=== PATIENT | female | born 1955 | race Caucasian/White ===

== ENCOUNTER 2019-06-07 08:56 | Inpatient (IN) ==
[2019-06-07 13:21] LABS: Bacteria,Urine Few /HPF (Few); Bilirubin,Urine Negative (Negative); Blood, Urine Moderate mg/dL (Negative); Glucose,Urine (UA) 50 mg/dL (Negative); Ketones,Urine Negative (Negative); Mucus,Urine Occasional /LPF (Occasional); Nitrite,Urine Negative (Negative); Protein,Urine 100 MG/DL; RBC,Urine 11 /HPF (0-4); Squamous Epithelial Cell,Urine Few /HPF (0-10); Urine Color Yellow (Yellow); Urine Specific Gravity 1.014 (1.001-1.035); Urine Urobilinogen < 2.0 EU/DL (0.2-1.0)
[2019-06-07 13:22] LABS: Apearance,Urine Cloudy (Clear)
[2019-06-07 13:23] LABS: Basophils % 0.4 % (0.0-0.8); Eosinophils # 0.3 10*3/uL (0.0-0.87); Eosinophils % 2.7 % (0.00-10.9); Hemoglobin 13.1 GM/DL (12.0-16.0); Immature Granulocytes % 0.4 %; Immature Granulocytes Absolute 0.04 #; Lymphocytes % 19.2 % (21.3-54.2); Mean Corpuscular Volume 96.5 FL (87-102); Mean Platelet Volume 12.3 FL (9.6-12.0); Monocytes % 5.2 % (1.7-12.7); Neutrophils % 72.1 % (38.7-73.9); Platelet Count 205 T/CUMM (130-400); Red Blood Count 4.25 MC/CUMM (3.8-5.5); Red Cell Distribution Width 13.2 % (9.3-17.3); White Blood Count 10.5 T/CUMM (4-12)
[2019-06-07 13:24] LABS: PT Patient Result 10.5 SECS (9.6-12.2); Partial Thromboplastin Time 26.5 SECS (20.8-36.0)
[2019-06-07 13:50] LABS: Albumin 3.5 G/DL (3.4-5.0); Bilirubin,Total 0.4 MG/DL (0.2-1.0); Calcium 9.4 MG/DL (8.5-10.1); Osmolality,Calculated 292.4 MOS/KG (273-304); Total Protein 8.2 G/DL (6.4-8.3)
[2019-06-07] MEDS ORDERED: ACETAMINOPHEN 325 MG TABLET PO PRN (18:06)
[2019-06-07] MEDS ORDERED: ONDANSETRON 4 MG/2 ML VIAL IV PRN (18:06)
[2019-06-07] MEDS: hydrALAZINE 20 MG/1 ML VIAL IV PRN (20:43)
[2019-06-08] MEDS ORDERED: cefTRIAXone 1,000 MG in SYRINGE 1 EACH IV ONE (07:00)
[2019-06-08] MEDS ORDERED: PROPOFOL 200 MG/20 ML VIAL IV ONE (12:13)
[2019-06-08] MEDS ORDERED: fentaNYL 100 MCG/2 ML VIAL ONE (12:14)
[2019-06-08] MEDS ORDERED: hydrALAZINE 20 MG/1 ML VIAL ONE (12:14)
[2019-06-08] MEDS ORDERED: PHENYLEPHRINE 1 MG/10 ML SYRINGE IV ONE (12:14)
[2019-06-08] MEDS ORDERED: MIDAZOLAM 2 MG/2 ML VIAL ONE (12:14)
[2019-06-08] MEDS ORDERED: LIDOCAINE 2% 5 ML VIAL ONE (12:14)
[2019-06-08] MEDS ORDERED: SEVOFLURANE 1 UNIT/15 MINUTE INH ONE (12:14)
[2019-06-08] MEDS ORDERED: SUCCINYLCHOLINE 200 MG/10 ML VIAL ONE (12:14)
[2019-06-08] MEDS ORDERED: ROCURONIUM 100 MG/10 ML VIAL IV ONE (12:14)
[2019-06-08] MEDS: hydrALAZINE 20 MG/1 ML VIAL IV PRN (20:20)
[2019-06-09 05:26] LABS: Basophils % 0.3 % (0.0-0.8); Eosinophils # 0.3 10*3/uL (0.0-0.87); Eosinophils % 3.4 % (0.00-10.9); Hematocrit 35.3 VOL% (35.7-47.0); Hemoglobin 11.3 GM/DL (12.0-16.0); Immature Granulocytes % 0.4 %; Immature Granulocytes Absolute 0.04 #; Lymphocytes # 2.2 10*3/uL (1.4-4.0); Lymphocytes % 21.7 % (21.3-54.2); Mean Corpuscular Volume 97.5 FL (87-102); Mean Platelet Volume 12.6 FL (9.6-12.0); Neutrophils % 66.2 % (38.7-73.9); Platelet Count 164 T/CUMM (130-400); Red Blood Count 3.62 MC/CUMM (3.8-5.5); Red Cell Distribution Width 13.4 % (9.3-17.3)
[2019-06-09 05:56] LABS: Calcium 8.4 MG/DL (8.5-10.1); Osmolality,Calculated 294.5 MOS/KG (273-304)
[2019-06-09] MEDS: hydrALAZINE 20 MG/1 ML VIAL IV PRN (21:19)
[2019-06-10] MEDS ORDERED: ceFAZolin 1,000 MG in SYRINGE 1 EACH IV ONE (06:00)
[2019-06-10 06:09] LABS: Calcium 8.6 MG/DL (8.5-10.1)
[2019-06-10 06:10] LABS: Uric Acid 8.7 MG/DL (2.6-6.0)
[2019-06-10] MEDS ORDERED: HEPARIN 5,000 UNIT/1 ML VIAL ONE (10:20)
[2019-06-10] MEDS ORDERED: LIDOCAINE 1%/EPI INJ 20 ML VIAL ONE (10:21)
[2019-06-10] MEDS ORDERED: BUPIVACAINE MPF 0.25% 30 ML VIAL ONE (10:21)
[2019-06-10] MEDS ORDERED: KETAMINE 500 MG/10 ML VIAL ONE (11:33)
[2019-06-10] MEDS ORDERED: LIDOCAINE 2% 5 ML VIAL ONE (11:33)
[2019-06-10] MEDS ORDERED: PROPOFOL 200 MG/20 ML VIAL IV ONE (11:33)
[2019-06-10] MEDS ORDERED: MIDAZOLAM 2 MG/2 ML VIAL ONE (11:34)
[2019-06-10] MEDS ORDERED: fentaNYL 100 MCG/2 ML VIAL ONE (11:34)
[2019-06-10] MEDS: NICOTINE 14 MG/24 HR PATCH TRANSDERM SCH ×2 (12:10→12:11)
[2019-06-10 13:32] LABS: Hepatitis B Core IgM Quant 0.22 Index; Hepatitis B Surface Ag Quant < 0.10 Index; Hepatitis B Surface Ag Result Negative (Negative); Hepatitis C Virus Ab Quant 0.17 Index; Hepatitis C Virus Ab Result Negative (Negative)
[2019-06-10] MEDS ORDERED: HEPARIN 10,000 UNIT/10 ML VIAL IV SCH (15:30)
[2019-06-10] MEDS: amLODIPine 10 MG TABLET PO SCH (17:53)
[2019-06-10] MEDS: hydrALAZINE 20 MG/1 ML VIAL IV PRN (17:53)
[2019-06-11 05:28] LABS: Basophils % 0.5 % (0.0-0.8); Eosinophils # 0.3 10*3/uL (0.0-0.87); Hematocrit 34.3 VOL% (35.7-47.0); Hemoglobin 10.9 GM/DL (12.0-16.0); Immature Granulocytes % 0.3 %; Immature Granulocytes Absolute 0.03 #; Mean Corpuscular HGB Conc 31.8 GM/DL (32-36); Mean Corpuscular Volume 97.2 FL (87-102); Mean Platelet Volume 12.3 FL (9.6-12.0); Monocytes % 7.3 % (1.7-12.7); Neutrophils % 64.9 % (38.7-73.9); Platelet Count 172 T/CUMM (130-400); Red Blood Count 3.53 MC/CUMM (3.8-5.5); Red Cell Distribution Width 13.4 % (9.3-17.3); White Blood Count 8.6 T/CUMM (4-12)
[2019-06-11 06:01] LABS: Calcium 8.4 MG/DL (8.5-10.1); Osmolality,Calculated 285.3 MOS/KG (273-304)
[2019-06-11] MEDS: NICOTINE 14 MG/24 HR PATCH TRANSDERM SCH (08:06)
[2019-06-11] MEDS: amLODIPine 10 MG TABLET PO SCH (08:06)
[2019-06-11 14:08] VITALS: BP 158/96
== END 2019-06-11 17:09 | disposition home or self-care (01) | DRG 686 ==
LOC: N.5E 08:59
PROVIDERS: ADMIT Internal Medicine; ATTEND Internal Medicine

== ENCOUNTER 2019-07-21 06:10 | Inpatient (IN) ==
[2019-07-14 09:51] LABS: Basophils # 0.1 10*3/uL (0.0-0.2); Basophils % 0.4 % (0.0-0.8); Eosinophils # 0.8 10*3/uL (0.0-0.87); Eosinophils % 6.9 % (0.00-10.9); Hematocrit 39.7 VOL% (35.7-47.0); Hemoglobin 12.4 GM/DL (12.0-16.0); Immature Granulocytes % 0.5 %; Immature Granulocytes Absolute 0.06 #; Lymphocytes # 2.9 10*3/uL (1.4-4.0); Lymphocytes % 25.5 % (21.3-54.2); Mean Corpuscular HGB Conc 31.2 GM/DL (32-36); Mean Corpuscular Volume 100.5 FL (87-102); Mean Platelet Volume 11.4 FL (9.6-12.0); Monocytes % 6.3 % (1.7-12.7); Neutrophils % 60.4 % (38.7-73.9); Platelet Count 217 T/CUMM (130-400); Red Blood Count 3.95 MC/CUMM (3.8-5.5); Red Cell Distribution Width 14.6 % (9.3-17.3); White Blood Count 11.5 T/CUMM (4-12)
[2019-07-14 10:16] LABS: Osmolality,Calculated 293.1 MOS/KG (273-304)
[2019-07-14 10:17] LABS: Apearance,Urine CLOUDY (Clear); Bilirubin,Urine Negative (Negative); Blood, Urine Large mg/dL (Negative); Glucose,Urine (UA) Negative (Negative); Ketones,Urine Negative (Negative); Nitrite,Urine Negative (Negative); Protein,Urine 100 MG/DL; RBC,Urine 11 /HPF (0-4); Squamous Epithelial Cell,Urine Few /HPF (0-10); Urine Color Yellow (Yellow); Urine Specific Gravity 1.014 (1.001-1.035); Urine Urobilinogen < 2.0 EU/DL (0.2-1.0); WBC,Urine 40 /HPF (0-6)
[~2019-07-21 06:10] MED LIST: ALVIMOPAN 12 MG CAPSULE PO ONE; cefTRIAXone 1,000 MG in SYRINGE 1 EACH IV ONE
[2019-07-21] MEDS ORDERED: ALVIMOPAN 12 MG CAPSULE ONE (06:29)
[2019-07-21] MEDS ORDERED: cefTRIAXone 1,000 MG VIAL ONE (06:29)
[2019-07-21 06:52] LABS: Hematocrit 35.9 VOL% (35.7-47.0); Hemoglobin 11.3 GM/DL (12.0-16.0)
[2019-07-21] MEDS: SODIUM CHLORIDE 0.9% 250 ML IV SCH ×2 (07:14→21:03)
[2019-07-21] MEDS ORDERED: PHENYLEPHRINE DRIP 20 MG/250 ML PREMIX IV ONE (07:18)
[2019-07-21] MEDS ORDERED: HEPARIN/NACL 0.9% 2 UNITS/ML 500 ML IV ONE (07:18)
[2019-07-21] MEDS ORDERED: NALOXONE 0.4 MG/ML VIAL IV PRN (10:47)
[2019-07-21] MEDS ORDERED: SODIUM CHLORIDE 0.9% 1,000 ML IV SCH (11:00)
[2019-07-21] MEDS ORDERED: HYDROmorphone PCA 30 MG/30 ML SYRINGE IV SCH (11:00)
[2019-07-21] MEDS ORDERED: SUGAMMADEX 200 MG/2 ML VIAL IV ONE (11:02)
[2019-07-21] MEDS ORDERED: HYDROmorphone PCA 30 MG/30 ML SYRINGE IV ONE (11:15)
[2019-07-21] MEDS ORDERED: ONDANSETRON 4 MG/2 ML VIAL ONE ×2 (11:23→11:24)
[2019-07-21] MEDS ORDERED: propofoL 200 MG/20 ML VIAL IV ONE (11:23)
[2019-07-21] MEDS ORDERED: MEPERIDINE 25 MG/1 ML VIAL ONE (11:23)
[2019-07-21] MEDS ORDERED: PROMETHAZINE 25 MG/1 ML VIAL ONE (11:23)
[2019-07-21] MEDS ORDERED: PHENYLEPHRINE 1 MG/10 ML SYRINGE IV ONE (11:24)
[2019-07-21] MEDS ORDERED: MIDAZOLAM 2 MG/2 ML VIAL ONE (11:24)
[2019-07-21] MEDS ORDERED: DEXAMETHASONE 4 MG/1 ML VIAL ONE (11:24)
[2019-07-21] MEDS ORDERED: fentaNYL 100 MCG/2 ML VIAL ONE (11:24)
[2019-07-21] MEDS ORDERED: GLYCOPYRROLATE 0.4 MG/2 ML VIAL ONE (11:24)
[2019-07-21] MEDS ORDERED: ROCURONIUM 100 MG/10 ML VIAL IV ONE (11:25)
[2019-07-21] MEDS ORDERED: ALBUTEROL INHALER 8 GM INH ONE (11:25)
[2019-07-21] MEDS ORDERED: NEOSTIGMINE 10 MG/10 ML VIAL ONE (11:25)
[2019-07-21] MEDS ORDERED: SODIUM CHLORIDE 0.9% 1,000 ML IV ONE (11:25)
[2019-07-21] MEDS ORDERED: SEVOFLURANE 1 UNIT/15 MINUTE INH ONE (11:25)
[2019-07-21] MEDS ORDERED: MEPERIDINE 25 MG/1 ML VIAL IV PRN (11:49)
[2019-07-21] MEDS ORDERED: ONDANSETRON 4 MG/2 ML VIAL IV PRN (11:49)
[2019-07-21] MEDS ORDERED: PROMETHAZINE INJ 25 MG in SODIUM CHLORIDE 0.9% 50 ML IV PRN (11:49)
[2019-07-21] MEDS ORDERED: ALBUTEROL 2.5 MG/3 ML NEB RESP TX ONE (11:50)
[2019-07-21] MEDS ORDERED: HEPARIN 1,000 UNIT/1 ML VIAL ONE (12:08)
[2019-07-21] MEDS ORDERED: HEPARIN 10,000 UNIT/10 ML VIAL IV ONE (12:30)
[2019-07-21] MEDS ORDERED: ALBUTEROL/IPRATROPIUM 3 ML NEB RESP TX PRN (17:13)
[2019-07-21] MEDS: amLODIPine 10 MG TABLET PO SCH (20:58)
[2019-07-22 06:05] LABS: Basophils % 0.1 % (0.0-0.8); Hematocrit 33.4 VOL% (35.7-47.0); Hemoglobin 10.1 GM/DL (12.0-16.0); Immature Granulocytes % 0.7 %; Immature Granulocytes Absolute 0.14 #; Lymphocytes # 1.7 10*3/uL (1.4-4.0); Lymphocytes % 8.9 % (21.3-54.2); Mean Corpuscular HGB Conc 30.2 GM/DL (32-36); Mean Corpuscular Volume 102.5 FL (87-102); Mean Platelet Volume 11.6 FL (9.6-12.0); Monocytes % 6.7 % (1.7-12.7); Neutrophils % 83.6 % (38.7-73.9); Platelet Count 197 T/CUMM (130-400); Red Blood Count 3.26 MC/CUMM (3.8-5.5); Red Cell Distribution Width 15.2 % (9.3-17.3); White Blood Count 18.9 T/CUMM (4-12)
[2019-07-22] MEDS: ONDANSETRON 4 MG/2 ML VIAL IV PRN ×3 (06:06→21:21)
[2019-07-22 06:22] LABS: Calcium 9.2 MG/DL (8.5-10.1)
[2019-07-22] MEDS ORDERED: SODIUM POLYSTYRENE SULFATE 15 GM/60 ML BOTTLE PO STA (08:03)
[2019-07-22 08:08] LABS: Uric Acid 7.3 MG/DL (2.6-6.0)
[2019-07-22] MEDS: cefTRIAXone 500 MG in SYRINGE 1 EACH IV SCH (08:38)
[2019-07-22] MEDS: hydrALAZINE 25 MG TABLET PO SCH ×3 (08:39→21:21)
[2019-07-22] MEDS: methylPREDNISolone SOD SUC 40 MG/1 ML VIAL IV SCH ×3 (08:42→23:33)
[2019-07-22] MEDS: SODIUM CHLORIDE 0.9% 250 ML IV SCH (08:46)
[2019-07-22] MEDS: oxyCODONE/ACETAMINOPHEN 5-325 MG TABLET PO PRN ×3 (09:43→21:21)
[2019-07-22] MEDS: ALBUTEROL/IPRATROPIUM 3 ML NEB RESP TX SCH ×2 (15:58→23:05)
[2019-07-22] MEDS ORDERED: HEPARIN 10,000 UNIT/10 ML VIAL IV PRN (16:37)
[2019-07-22 17:54] LABS: Hepatitis B Core IgM Quant 0.22 Index; Hepatitis B Surface Ag Quant < 0.10 Index; Hepatitis B Surface Ag Result Negative (Negative); Hepatitis C Virus Ab Quant 0.06 Index; Hepatitis C Virus Ab Result Negative (Negative)
[2019-07-22] MEDS: amLODIPine 10 MG TABLET PO SCH (21:21)
[2019-07-22] MEDS ORDERED: DEXTROSE 50% 25 GM/50 ML VIAL IV PRN (23:14)
[2019-07-22] MEDS ORDERED: GLUCAGON 1 MG VIAL IM PRN (23:14)
[2019-07-23] MEDS: ALBUTEROL/IPRATROPIUM 3 ML NEB RESP TX SCH ×5 (00:45→20:25)
[2019-07-23 05:09] LABS: Basophils % 0.1 % (0.0-0.8); Hematocrit 30.4 VOL% (35.7-47.0); Hemoglobin 9.7 GM/DL (12.0-16.0); Immature Granulocytes % 1.1 %; Immature Granulocytes Absolute 0.19 #; Lymphocytes # 1.1 10*3/uL (1.4-4.0); Lymphocytes % 6.2 % (21.3-54.2); Mean Corpuscular HGB Conc 31.9 GM/DL (32-36); Mean Corpuscular Volume 98.7 FL (87-102); Mean Platelet Volume 11.9 FL (9.6-12.0); Monocytes % 5.8 % (1.7-12.7); NRBC # 0.02 10*3/uL; Neutrophils % 86.8 % (38.7-73.9); Platelet Count 158 T/CUMM (130-400); Red Blood Count 3.08 MC/CUMM (3.8-5.5); Red Cell Distribution Width 14.6 % (9.3-17.3); White Blood Count 17.3 T/CUMM (4-12)
[2019-07-23 05:47] LABS: Albumin 2.6 G/DL (3.4-5.0); Bilirubin,Total 0.9 MG/DL (0.2-1.0); Osmolality,Calculated 275.2 MOS/KG (273-304); Total Protein 6.8 G/DL (6.4-8.3)
[2019-07-23] MEDS: BUDESONIDE 0.25 MG/2 ML NEB RESP TX SCH ×3 (07:24→20:25)
[2019-07-23] MEDS: SODIUM CHLORIDE 0.9% 250 ML IV SCH ×3 (08:07→22:45)
[2019-07-23] MEDS: ONDANSETRON 4 MG/2 ML VIAL IV PRN ×3 (08:36→20:52)
[2019-07-23] MEDS: cefTRIAXone 500 MG in SYRINGE 1 EACH IV SCH (08:37)
[2019-07-23] MEDS: methylPREDNISolone SOD SUC 40 MG/1 ML VIAL IV SCH ×3 (08:37→22:38)
[2019-07-23] MEDS: hydrALAZINE 25 MG TABLET PO SCH ×4 (08:38→20:52)
[2019-07-23] MEDS: oxyCODONE/ACETAMINOPHEN 5-325 MG TABLET PO PRN ×3 (08:48→22:40)
[2019-07-23] MEDS ORDERED: PROMETHAZINE 25 MG/1 ML VIAL IM ONE (09:23)
[2019-07-23] MEDS: INSULIN REGULAR 100 UNIT/ML SUBCUT SCH ×4 (09:35→20:53)
[2019-07-23] MEDS: PROMETHAZINE 25 MG/1 ML VIAL IM PRN ×2 (13:29→22:34)
[2019-07-23] MEDS: amLODIPine 10 MG TABLET PO SCH (20:52)
[2019-07-24] MEDS: ALBUTEROL/IPRATROPIUM 3 ML NEB RESP TX SCH ×4 (00:35→19:52)
[2019-07-24 05:33] LABS: Basophils % 0.1 % (0.0-0.8); Hemoglobin 10.3 GM/DL (12.0-16.0); Immature Granulocytes % 0.7 %; Immature Granulocytes Absolute 0.12 #; Lymphocytes # 1.1 10*3/uL (1.4-4.0); Mean Corpuscular HGB Conc 32.2 GM/DL (32-36); Mean Corpuscular Volume 98.8 FL (87-102); Mean Platelet Volume 12.2 FL (9.6-12.0); Monocytes % 5.7 % (1.7-12.7); NRBC # 0.07 10*3/uL; Neutrophils % 87.5 % (38.7-73.9); Platelet Count 180 T/CUMM (130-400); Red Blood Count 3.24 MC/CUMM (3.8-5.5); Red Cell Distribution Width 14.7 % (9.3-17.3); White Blood Count 17.8 T/CUMM (4-12)
[2019-07-24] MEDS: ONDANSETRON 4 MG/2 ML VIAL IV PRN ×3 (06:28→21:25)
[2019-07-24] MEDS: BUDESONIDE 0.25 MG/2 ML NEB RESP TX SCH ×2 (07:12→19:52)
[2019-07-24] MEDS: INSULIN REGULAR 100 UNIT/ML SUBCUT SCH ×4 (08:08→21:30)
[2019-07-24] MEDS: methylPREDNISolone SOD SUC 40 MG/1 ML VIAL IV SCH ×3 (08:55→23:09)
[2019-07-24] MEDS: PROMETHAZINE 25 MG/1 ML VIAL IM PRN ×3 (08:55→23:07)
[2019-07-24] MEDS: hydrALAZINE 25 MG TABLET PO SCH ×3 (08:56→21:22)
[2019-07-24] MEDS: oxyCODONE/ACETAMINOPHEN 5-325 MG TABLET PO PRN ×3 (08:56→23:41)
[2019-07-24] MEDS: cefTRIAXone 500 MG in SYRINGE 1 EACH IV SCH (08:56)
[2019-07-24] MEDS: amLODIPine 10 MG TABLET PO SCH (21:21)
[2019-07-25] MEDS: ALBUTEROL/IPRATROPIUM 3 ML NEB RESP TX SCH ×4 (00:41→20:23)
[2019-07-25] MEDS: ONDANSETRON 4 MG/2 ML VIAL IV PRN ×3 (03:41→20:29)
[2019-07-25 05:04] LABS: Basophils # 0.1 10*3/uL (0.0-0.2); Basophils % 0.2 % (0.0-0.8); Hematocrit 34.5 VOL% (35.7-47.0); Hemoglobin 11.2 GM/DL (12.0-16.0); Immature Granulocytes % 1.2 %; Immature Granulocytes Absolute 0.26 #; Lymphocytes # 1.6 10*3/uL (1.4-4.0); Lymphocytes % 7.5 % (21.3-54.2); Mean Corpuscular HGB Conc 32.5 GM/DL (32-36); Mean Corpuscular Volume 97.5 FL (87-102); Mean Platelet Volume 12.2 FL (9.6-12.0); Monocytes % 6.4 % (1.7-12.7); NRBC # 0.17 10*3/uL; Neutrophils % 84.7 % (38.7-73.9); Platelet Count 240 T/CUMM (130-400); Red Blood Count 3.54 MC/CUMM (3.8-5.5); Red Cell Distribution Width 14.9 % (9.3-17.3); White Blood Count 21.9 T/CUMM (4-12)
[2019-07-25 05:28] LABS: Band Neutrophils 2 % (0-10); Lymphocytes 7 % (20-55); Metamyelocytes 1 %; Nucleated Red Blood Cells 2 (0-5); Platelet Estimate Normal; Segmented Neutrophils 80 % (50-85); Total Cells Counted 100
[2019-07-25 05:29] LABS: Polychromasia Slight; Target Cells Slight
[2019-07-25 05:30] LABS: Anisocytosis Slight; Macrocytosis Slight
[2019-07-25] MEDS: oxyCODONE/ACETAMINOPHEN 5-325 MG TABLET PO PRN ×2 (05:45→12:11)
[2019-07-25] MEDS: PROMETHAZINE 25 MG/1 ML VIAL IM PRN ×3 (05:46→17:29)
[2019-07-25] MEDS: BUDESONIDE 0.25 MG/2 ML NEB RESP TX SCH ×2 (08:05→20:23)
[2019-07-25] MEDS: INSULIN REGULAR 100 UNIT/ML SUBCUT SCH ×4 (08:25→20:28)
[2019-07-25] MEDS: cefTRIAXone 500 MG in SYRINGE 1 EACH IV SCH (08:52)
[2019-07-25] MEDS: hydrALAZINE 25 MG TABLET PO SCH ×3 (08:52→20:28)
[2019-07-25] MEDS: methylPREDNISolone SOD SUC 40 MG/1 ML VIAL IV SCH ×2 (08:52→17:30)
[2019-07-25 16:11] LABS: Albumin 3.2 G/DL (3.4-5.0); Bilirubin,Total 0.8 MG/DL (0.2-1.0); Calcium 10.4 MG/DL (8.5-10.1); Osmolality,Calculated 289.2 MOS/KG (273-304); Total Protein 8.2 G/DL (6.4-8.3)
[2019-07-25] MEDS: PANTOPRAZOLE 40 MG VIAL IV SCH (17:30)
[2019-07-25] MEDS: amLODIPine 10 MG TABLET PO SCH (20:28)
[2019-07-26] MEDS: ALBUTEROL/IPRATROPIUM 3 ML NEB RESP TX SCH ×4 (02:30→18:51)
[2019-07-26] MEDS: PROMETHAZINE 25 MG/1 ML VIAL IM PRN ×2 (02:56→08:41)
[2019-07-26] MEDS ORDERED: DEXTROSE 50% 25 GM/50 ML SYRINGE IV ONE (03:02)
[2019-07-26] MEDS ORDERED: SODIUM BICARBONATE 50 MEQ/50 ML SYRINGE IV ONE (03:02)
[2019-07-26] MEDS ORDERED: CALCIUM CHLORIDE 1,000 MG/10 ML SYRINGE IV ONE (03:02)
[2019-07-26] MEDS ORDERED: EPINEPHrine 1 MG/10 ML SYRINGE ONE ×2 (03:02→16:10)
[2019-07-26] MEDS: methylPREDNISolone SOD SUC 40 MG/1 ML VIAL IV SCH ×2 (04:36→17:53)
[2019-07-26 05:02] LABS: Basophils # 0.1 10*3/uL (0.0-0.2); Basophils % 0.3 % (0.0-0.8); Hematocrit 35.5 VOL% (35.7-47.0); Hemoglobin 11.4 GM/DL (12.0-16.0); Immature Granulocytes % 1.4 %; Immature Granulocytes Absolute 0.32 #; Lymphocytes % 4.5 % (21.3-54.2); Mean Corpuscular HGB Conc 32.1 GM/DL (32-36); Mean Corpuscular Volume 97.8 FL (87-102); Mean Platelet Volume 12.1 FL (9.6-12.0); Monocytes % 6.2 % (1.7-12.7); NRBC # 0.36 10*3/uL; Neutrophils % 87.6 % (38.7-73.9); Platelet Count 263 T/CUMM (130-400); Red Blood Count 3.63 MC/CUMM (3.8-5.5); Red Cell Distribution Width 15.2 % (9.3-17.3); White Blood Count 22.4 T/CUMM (4-12)
[2019-07-26 05:22] LABS: Band Neutrophils 2 % (0-10); Lymphocytes 2 % (20-55); Nucleated Red Blood Cells 2 (0-5); Platelet Estimate Adequate; Segmented Neutrophils 93 % (50-85); Total Cells Counted 100
[2019-07-26 05:24] LABS: Macrocytosis Slight
[2019-07-26 05:28] LABS: Albumin 2.9 G/DL (3.4-5.0); Bilirubin,Total 1.2 MG/DL (0.2-1.0); Calcium 10.2 MG/DL (8.5-10.1); Osmolality,Calculated 289.5 MOS/KG (273-304); Total Protein 7.9 G/DL (6.4-8.3)
[2019-07-26] MEDS: BUDESONIDE 0.25 MG/2 ML NEB RESP TX SCH ×2 (07:40→18:51)
[2019-07-26] MEDS: INSULIN REGULAR 100 UNIT/ML SUBCUT SCH ×3 (07:43→16:34)
[2019-07-26] MEDS: hydrALAZINE 25 MG TABLET PO SCH ×3 (08:24→21:32)
[2019-07-26] MEDS: PANTOPRAZOLE 40 MG VIAL IV SCH (08:41)
[2019-07-26] MEDS: cefTRIAXone 500 MG in SYRINGE 1 EACH IV SCH (08:41)
[2019-07-26] MEDS: ONDANSETRON 4 MG/2 ML VIAL IV PRN (13:44)
[2019-07-26] MEDS ORDERED: ETOMIDATE 20 MG/10 ML VIAL IV ONE (16:10)
[2019-07-26] MEDS ORDERED: VECURONIUM 10 MG VIAL IV ONE ×2 (16:10→16:13)
[2019-07-26] MEDS ORDERED: PHENYLEPHRINE INJ 160 MG in SODIUM CHLORIDE 0.9% 234 ML IV PRN (16:29)
[2019-07-26 16:41] LABS: Albumin 3.2 G/DL (3.4-5.0); Bilirubin,Total 1.5 MG/DL (0.2-1.0); Osmolality,Calculated 274.2 MOS/KG (273-304)
[2019-07-26] MEDS ORDERED: DEXTROSE 10% 1,000 ML IV PRN (17:00)
[2019-07-26] MEDS ORDERED: MULTIVITAMIN INJ 10 ML in DEXTROSE 50% 400 ML, AMINO ACIDS 10% 600 ML IV SCH (17:00)
[2019-07-26 17:08] LABS: ABG Base Excess -25.1 MMOL/L (-2.5-2.5); ABG HCO3 6.9 MMOL/L (20-26); ABG Oxygen Saturation 98.1 % (95-100); ABG PCO2 33.9 MM HG (35-48); ABG TCO2 6.9 MMOL/L (23-27); Allen Test Positive; Pt O2 Delivery Device Ventilator
[2019-07-26 17:11] LABS: ABG PH 6.908 (7.35-7.45)
[2019-07-26] MEDS ORDERED: SODIUM BICARBONATE 50 MEQ/50 ML VIAL IV ONE ×4 (17:15→23:51)
[2019-07-26] MEDS: NOREPINEPHRINE 16 MG in SODIUM CHLORIDE 0.9% 234 ML IV PRN (17:44)
[2019-07-26] MEDS ORDERED: SODIUM POLYSTYRENE SULFATE 15 GM/60 ML BOTTLE RECTAL ONE ×2 (18:04→20:44)
[2019-07-26] MEDS ORDERED: SODIUM CHLORIDE 23.4% CONC INJ 38.5 MEQ, SODIUM BICARB INJ 100 MEQ in STERILE WATER INJ... IV SCH (18:30)
[2019-07-26] MEDS ORDERED: SODIUM CHLORIDE 0.9% 500 ML IV ONE (19:02)
[2019-07-26 19:09] LABS: Basophils # 0.1 10*3/uL (0.0-0.2); Basophils % 0.2 % (0.0-0.8); Eosinophils % 0.1 % (0.00-10.9); Hematocrit 35.8 VOL% (35.7-47.0); Hemoglobin 10.5 GM/DL (12.0-16.0); Immature Granulocytes % 14.8 %; Immature Granulocytes Absolute 3.78 #; Lymphocytes # 1.1 10*3/uL (1.4-4.0); Lymphocytes % 4.4 % (21.3-54.2); Mean Corpuscular HGB Conc 29.3 GM/DL (32-36); Mean Corpuscular Volume 107.5 FL (87-102); Mean Platelet Volume 11.2 FL (9.6-12.0); Monocytes % 4.7 % (1.7-12.7); Neutrophils % 75.8 % (38.7-73.9); Platelet Count 93 T/CUMM (130-400); Red Blood Count 3.33 MC/CUMM (3.8-5.5); Red Cell Distribution Width 15.9 % (9.3-17.3); White Blood Count 25.5 T/CUMM (4-12)
[2019-07-26 20:28] LABS: Troponin I 0.083 NG/ML (0.00-0.045)
[2019-07-26 20:41] LABS: Albumin 2.1 G/DL (3.4-5.0); Bilirubin,Total 1.1 MG/DL (0.2-1.0); Calcium 9.3 MG/DL (8.5-10.1); Osmolality,Calculated 297.1 MOS/KG (273-304); Total Protein 5.9 G/DL (6.4-8.3)
[2019-07-26 20:41] LABS: Band Neutrophils 6 % (0-10); Lymphocytes 5 % (20-55); Metamyelocytes 9 %; Myelocytes 2 %; Nucleated Red Blood Cells 12 (0-5); Platelet Estimate Decreased; Segmented Neutrophils 76 % (50-85); Total Cells Counted 100
[2019-07-26 20:42] LABS: Anisocytosis 1+; Macrocytosis 2+; Poikilocytosis 1+; Polychromasia 2+; Toxic Granulation 2+
[2019-07-26] MEDS ORDERED: SODIUM POLYSTYRENE SULFATE 15 GM/60 ML BOTTLE PO ONE (20:53)
[2019-07-26 21:19] LABS: ABG Base Excess -22.7 MMOL/L (-2.5-2.5); ABG HCO3 8.1 MMOL/L (20-26); ABG Oxygen Saturation 92.5 % (95-100); ABG PCO2 40.3 MM HG (35-48); ABG TCO2 8.8 MMOL/L (23-27); Allen Test Positive; Pt O2 Delivery Device Ventilator
[2019-07-26 21:22] LABS: ABG PH 6.947 (7.35-7.45)
[2019-07-26 21:47] LABS: Troponin I 0.209 NG/ML (0.00-0.045)
[2019-07-26] MEDS: VASOPRESSIN 100 UNITS in SODIUM CHLORIDE 0.9% 95 ML IV SCH (22:36)
[2019-07-26 23:30] LABS: ABG Base Excess -20.1 MMOL/L (-2.5-2.5); ABG HCO3 9.6 MMOL/L (20-26); ABG PCO2 40.2 MM HG (35-48); ABG TCO2 10.1 MMOL/L (23-27)
[2019-07-26 23:32] LABS: ABG PH 7.013 (7.35-7.45)
[2019-07-27 00:08] LABS: CKMB % 1.4 %
[2019-07-27 00:10] LABS: Troponin I 0.315 NG/ML (0.00-0.045)
[2019-07-27] MEDS: NOREPINEPHRINE 16 MG in SODIUM CHLORIDE 0.9% 234 ML IV PRN (00:12)
[2019-07-27] MEDS: VASOPRESSIN 100 UNITS in SODIUM CHLORIDE 0.9% 95 ML IV SCH (00:31)
[2019-07-27] MEDS: ALBUTEROL/IPRATROPIUM 3 ML NEB RESP TX SCH (01:03)
[2019-07-27] MEDS ORDERED: SODIUM POLYSTYRENE SULFATE 15 GM/60 ML BOTTLE RECTAL ONE (01:13)
[2019-07-27] MEDS: INSULIN REGULAR 100 UNIT/ML SUBCUT SCH (01:22)
[2019-07-27] MEDS ORDERED: DEXTROSE 5% IV SCH (01:30)
[2019-07-27] MEDS ORDERED: CALCIUM GLUCONATE 1,000 MG in SODIUM CHLORIDE 0.9% 100 ML IV ONE (01:30)
[2019-07-27] MEDS ORDERED: INSULIN REGULAR IV SCH (01:30)
[2019-07-27] MEDS: amLODIPine 10 MG TABLET PO SCH (03:01)
[2019-07-27 05:17] VITALS: BP 57/13
[2019-07-27] MEDS ORDERED: FAT EMULSION 20% 250 ML IV SCH (14:00)
[2019-07-27] MEDS ORDERED: MULTIVITAMIN IV SCH (17:00)
[2019-07-27] MEDS ORDERED: DEXTROSE IV SCH (17:00)
[2019-07-27] MEDS ORDERED: AMINO ACIDS 10% IV SCH (17:00)
== END 2019-07-27 03:20 | disposition expired | DRG 656 ==
LOC: N.PREADM 06:10 → N.SDSINP 06:13 → N.5E 15:40 → N.CC 07-26 15:57
PROVIDERS: ADMIT Urology; ATTEND Internal Medicine